=== PATIENT | female | born 1960 | race African-American/Black ===

== ENCOUNTER 2023-04-11 15:57 | Emergency (ER) | payer OTHER ==
[~2023-04-11] VITALS: Ht 167.6 cm; Wt 73.0 kg
[2023-04-11] MEDS ORDERED: ACETAMINOPHEN 325MG TABLET PO ONE (16:30)
[2023-04-11] MEDS ORDERED: LIDOCAINE 5% PATCH TOP SCH (16:30)
[2023-04-11] MEDS ORDERED: ACETAMINOPHEN 325MG TABLET PO NR (16:45)
[2023-04-11 16:52] VITALS: BP 144/93
[2023-04-11] MEDS ORDERED: BACL-141 MT (17:15)
[2023-04-11] MEDS ORDERED: LIDO700A15 TP (17:15)
[2023-04-11] MEDS ORDERED: ACET-2708 MT (17:15)
== END 2023-04-11 17:51 | disposition home or self-care (01) ==
LOC: ER 15:57
DX: S13.4XXA Sprain of ligaments of cervical spine, initial encounter (principal); R07.89 Other chest pain; I10 Essential (primary) hypertension; V49.9XXA Car occupant (driver) (passenger) injured in unspecified traffic accident, initial encounter; Y93.89 Activity, other specified; Y92.89 Other specified places as the place of occurrence of the external cause; Y99.8 Other external cause status
CPT/HCPCS: 36415; 71045; 84484; 93005; 99285